=== PATIENT | male | born 1975 | race Caucasian/White ===

== ENCOUNTER 2019-05-14 12:26 | Day surgery (SDC) | payer OTHER, SELFPAY ==
--- NOTE | 2019-05-14 | PATH_ITS ---
[facility] Accession Number: [id number] . 01 Material submitted: . esophagus - PROXIMAL, DISTAL ESOPHAGUS . 02 Diagnosis: Esophagus, Proximal, Distal, Biopsy: . Squamous epithelium with no diagnostic abnormality. Intraepithelial eosinophils are not increased. Negative for dysplasia and malignancy. [facility] 05/15/2019 1209 Local . 02 Electronically signed: . Kristal Mccormick MD, Pathologist NPI- [id number] . 01 Gross description: . PROXIMAL, DISTAL ESOPHAGUS: Received in formalin are 3 fragment(s) of dumont, soft tissue measuring 0.1 x 0.1 x 0.1 cm to 0.3 x 0.2 x 0.2 cm submitted entirely in 1 cassette(s) /[facility] 05/14/2019 2141 Local . 02 Pathologist provided ICD-10: R13.14 . 02 CPT . 620126 Performed at: 01 [facility] [address] [facility], [place], [place] [id number] MD Jackson Bishop MD Phone: [phone] Performed at: 02 [facility] [place] [address] [place], [place] [id number] MD Kristal Mccormick MD Phone: [phone]
--- NOTE | 2019-05-14 12:09 | PM.HP.1 ---
History of Present Illness History of Present Illness Date Patient Seen: 05/14/19 Chief complaint: [id number] Narrative: Patient is a 43-year-old male who presented for upper endoscopy. Patient was last seen in the office on April 14, 2019 with a chief complaint of trouble swallowing, symptoms of heartburn and epigastric pain. Meds Home Medications and Allergies Home Medications Medication Instructions Recorded Confirmed Type epinephrine 0.3 mg IM PRN PRN #0 02/08/16 History diazepam [Valium] 5 mg PO HSP PRN #14 tab 11/10/16 Rx hydrocodone-acetaminophen 0 tab PO Q6HP PRN #15 tab 11/10/16 Rx ibuprofen 400 mg PO #0 11/10/16 History ketorolac 10 mg PO Q6HP PRN #20 tab 11/10/16 Rx Allergies Allergy/AdvReac Type Severity Reaction Status Date / Time WASPS Allergy Unknown Uncoded 07/11/17 12:39 Review of Systems Review of Systems ROS: Yes All systems reviewed with the patient and are negative except as otherwise documented Exam Const General: cooperative, healthy appearing, comfortable, well developed, well groomed and No acute distress Nutritional Appearance: average body habitus Orientation: alert, awake and oriented x3 HENMT Head: normocephalic and atraumatic Nose: external nose normal Resp Effort & Inspection: normal respiratory effort and able to speak in complete sentences Auscultation: clear to auscultation bilaterally Cardio Rate: regular rate Rhythm: regular rhythm Heart Sounds: S1 normal and S2 normal GI Palpation: soft, No guarding and No rigid Auscultation: normal bowel sounds Neuro General: alert, awake and oriented x3 Extrem Right lower extremity: no edema Left lower extremity: no edema Assessment & Plan Assessment & Plan narrative: 1. Dysphagia, esophageal phase 2. Heartburn EGD today, further recommendations to follow
[2019-05-14 12:53] VITALS: BP 121/78; PULSE 61; RESP 20; TEMP 36.2; O2SAT 96; BMI 29.5
[2019-05-14] MEDS: SODIUM CHLORIDE 0.9% 1,000 ML 70 ML IV (13:03)
[2019-05-14] MEDS: LIDOCAINE 4% SOLN 50 ML 20 ML TOP (13:19)
[2019-05-14] MEDS: fentaNYL 250 MCG/5 ML INJ IV (13:20)
[2019-05-14] MEDS: MIDAZOLAM 5 MG/5 ML VIAL IV (13:20)
[2019-05-14 13:38] VITALS: BP 137/79; PULSE 69; RESP 20; TEMP 36.2; O2SAT 96
--- NOTE | 2019-05-14 13:40 | PM.OP.ENDO ---
Operative Date/Time/Diagnoses Date of procedure: 05/14/19 Time of procedure: 13:18 Procedure Notes Procedure in detail: Surgeon: Jessica Bhatt DO Procedure: Esophagogastroduodenoscopy with biopsy and esophageal dilation Preoperative diagnosis: 1. Esophageal dysphagia 2. Heartburn 3. Epigastric abdominal Postoperative diagnosis: 1. Distal esophageal stricture dilated with 12-15 mm balloon 2. Mucosal changes suggestive of eosinophilic esophagitis, biopsied 3. Small hiatal hernia 4. Normal appearing gastric mucosa 5. Normal appearing duodenal mucosa Medications: Conscious sedation using 7 mg IV of Midazolam and 200 mcg IV of Fentanyl Preanesthesia Assessment An H and P was performed/updated and the Px?s ASA class is 1. The procedure was discussed in detail with the patient. The potential risks and complications including infection, bleeding, missed lesions, perforation, need for surgery in case of perforation, prolonged hospital stay, and were explained. A brief question and answer period was allotted and once all questions were answered, informed consent was obtained. The patient was brought back to the procedure room and placed on standard monitoring. The patient?s vital signs were monitored continuously throughout the entire procedure. Prior to starting, a timeout was performed to confirm the patient?s identity, allergies, medications, and procedure. Procedure in detail The patient was placed in left lateral decubitus position and a bite block was inserted. The tip of the upper endoscope was placed into the mouth and advanced without difficulty under direct visualization into the esophagus. Esophagus: -mucosal changes suggestive of eosinophilic esophagitis. Biopsies were obtained from the proximal and distal esophagus. -distal esophageal stricture noted in the lower esophagus dilated with 12-15 mm balloon Stomach: -small hiatal hernia -normal-appearing gastric mucosa Duodenum: -normal-appearing duodenal mucosa The patient tolerated the procedure well and will be brought back to the recovery area to be discharged once criteria are met. The total physician intraservice time was 13min. Complications There were no complications and estimated blood loss was minimal. Recommendations: Resume previous diet Continue outpatient medications Follow up pathology results Continue mechanically altered diet Office follow up if persistent symptoms after biopsy results are reviewed An emergency contact number was given to the patient for any complications related to the procedure Sedation minutes: 13
[2019-05-14 13:43] VITALS: BP 143/73; PULSE 77; RESP 14; O2SAT 95
[2019-05-14 13:48] VITALS: BP 130/88; PULSE 69; RESP 16; TEMP 36.6; O2SAT 94
== END 2019-05-14 14:10 | disposition home or self-care (01) ==
PROVIDERS: PCP Registered Nurse Diabetes Educator; Referring Provider Registered Nurse Diabetes Educator; Visit Provider Student in an Organized Health Care Education/Training Program
PROC: 0DJ08ZZ Inspection of Upper Intestinal Tract, Via Natural or Artificial Opening Endoscopic (ICD-10-PCS; CPT 43235; principal; 2019-05-14 13:30)
DX: R13.12 Dysphagia, oropharyngeal phase (principal); R12 Heartburn; K44.9 Diaphragmatic hernia without obstruction or gangrene; K22.2 Esophageal obstruction
CPT/HCPCS: 43249; 43239; J2250; J3010

== ENCOUNTER → 2022-04-24 10:16 | Outpatient (CLI) | payer OTHER, SELFPAY ==
--- NOTE | 2022-04-24 | DI.MRI.S_ITS ---
PROCEDURE: MR CERVICAL SPINE WO CON INDICATIONS: Spinal stenosis, cervical region TECHNIQUE: Noncontrast sagittal T1 spin echo and T2 fast spin echo, sagittal STIR, foraminal oblique sagittal T2 fast spin echo, and axial gradient echo or T2 fast spin echo through the cervical spine. COMPARISON: None. FINDINGS: Image quality: Excellent. Alignment and Curvature: There is loss of normal cervical lordosis. Roughly 3 mm of retrolisthesis of C5 on C6. 2 mm of retrolisthesis of C2 on C3. Bone Marrow: Marrow demonstrates normal overall signal. Moderate reactive signal within the endplates adjacent to the C5-C6 intervertebral disc. Mild reactive signal within the remaining visualized cervical and upper thoracic endplates. Spinal Cord: Visualized spinal cord has normal size and signal. No cerebellar tonsillar herniation. Paraspinous Soft Tissues: No paravertebral masses. Prevertebral soft tissues are normal in thickness. C2-C3: Moderate disc desiccation. Moderate left and mild right facet and uncovertebral hypertrophy. Mild diffuse disc bulge. Congenital canal stenosis. Moderate canal stenosis. Moderate left and mild right foraminal stenosis. C3-C4: Congenital canal stenosis. Moderate disc desiccation. Mild diffuse disc bulge. Moderate right greater than left facet and uncovertebral hypertrophy. Severe canal stenosis. Mild cord flattening. Severe bilateral foraminal stenosis with bilateral C4 nerve root compression. C4-C5: Congenital canal stenosis. Moderate disc desiccation. Mild diffuse disc bulge. Moderate facet and uncovertebral hypertrophy, left greater than right. Moderate canal stenosis. Severe left and moderate right foraminal stenosis. Left C5 nerve root compression. C5-C6: Congenital canal stenosis. Moderate disc desiccation. Mild diffuse disc bulge. Moderate facet and uncovertebral hypertrophy bilaterally. Severe canal stenosis. Mild cord flattening. Severe bilateral foraminal stenosis with bilateral C6 nerve root compression. C6-C7: Congenital canal stenosis. Moderate disc desiccation. Mild diffuse disc bulge with superimposed left paracentral protrusion. Mild facet and uncovertebral hypertrophy bilaterally. Moderate to severe canal stenosis. Minimal left cord flattening. Severe left and moderate to severe right foraminal stenosis. Left greater than right C7 nerve root compression. C7-T1: Mild disc desiccation and diffuse disc bulge. Mild facet and uncovertebral hypertrophy bilaterally. Mild canal stenosis. Moderate bilateral foraminal stenosis. IMPRESSION: 1. Diffuse congenital canal stenosis with superimposed disc and facet disease, as well as uncovertebral hypertrophy. 2. Multilevel canal stenoses, worst at C5-C6 and C6-C7 where there is mild cord flattening. 3. Multilevel foraminal stenoses, worst at C3-C4, C4-C5, C5-C6, and C6-C7 where there is associated intraforaminal nerve root compression. Recommend correlation with clinical symptoms to ascertain relevance of these findings. Dictated by: Antony Luna M.D. on 04/24/2022 at 11:18 Transcribed by: QUEENIE on 04/24/2022 at 11:22 Approved by: Antony Luna M.D. on 04/24/2022 at 16:28
== END ==
PROVIDERS: PCP Registered Nurse Diabetes Educator; Referring Provider Orthopaedic Surgery Orthopaedic Surgery of the Spine; Visit Provider Orthopaedic Surgery Orthopaedic Surgery of the Spine
DX: M48.02 Spinal stenosis, cervical region (principal)
CPT/HCPCS: 72141

== ENCOUNTER → 2022-06-23 16:45 | Outpatient (CLI) | payer OTHER, SELFPAY ==
--- NOTE | 2022-06-23 16:48 | DI.MRI.S_ITS ---
PROCEDURE: MR LUMBAR SPINE WO CON INDICATIONS: Lumbago with sciatica, unspecified side TECHNIQUE: Noncontrast sagittal T1 spin echo and T2 fast echo, sagittal STIR, and T2 fast spin echo through the lumbar spine. In cases with scoliosis, additional coronal T2 fast spin echo may be performed. COMPARISON: None. FINDINGS: Image quality: Excellent. Alignment and Curvature: There is normal bony alignment. Bone Marrow: Marrow is of normal overall signal. No acute vertebral body compression fractures. Spinal Cord: Conus medullaris terminates at the L1 level. Visualized cord demonstrates normal signal and size. Paraspinous Soft Tissues: No paravertebral masses. T12-L1: Normal appearance. L1-L2: Desiccation and moderate disc height loss. L2-L3: Broad-based disc bulge. Fluid within the facet joints. L3-L4: Broad-based disc bulge. Fluid within the facets. Mild bilateral neural foraminal narrowing. L4-L5: Broad-based disc bulge. Annular fissure. Fluid within the facet joints. Mild bilateral neural foraminal narrowing. L5-S1: Posterior asymmetric disc bulge. Trace fluid within the facets. Moderate bilateral neural foraminal narrowing due to facet arthrosis. IMPRESSION: Multilevel degenerative disc disease and facet arthrosis, most prominent at L5-S1, resulting in moderate bilateral neural foraminal narrowing. Dictated by: Lam Matias M.D. on 06/26/2022 at 8:47 Approved by: Lam Matias M.D. on 06/26/2022 at 9:00
== END ==
PROVIDERS: Referring Provider Family Medicine; Visit Provider Family Medicine
DX: M54.40 Lumbago with sciatica, unspecified side (principal); R15.9 Full incontinence of feces; M62.838 Other muscle spasm; G57.93 Unspecified mononeuropathy of bilateral lower limbs; M51.36 Other intervertebral disc degeneration, lumbar region; M48.061 Spinal stenosis, lumbar region without neurogenic claudication; M47.816 Spondylosis without myelopathy or radiculopathy, lumbar region
CPT/HCPCS: 72148